=== PATIENT | male | born 1995 | race Caucasian/White ===

== ENCOUNTER 2017-07-24 02:50 | Emergency (ER) | payer OTHER ==
[~2017-07-24] VITALS: Ht 182.9 cm; Wt 83.2 kg
[2017-07-24 02:56] VITALS: BP 142/80; TEMP 98.2
[2017-07-24 05:11] VITALS: PULSE 86
== END 2017-07-24 04:03 | disposition home or self-care (01) ==
LOC: COL.ER 02:50
DX: S00.83XA Contusion of other part of head, initial encounter (principal); R04.0 Epistaxis; W50.0XXA Accidental hit or strike by another person, initial encounter